=== PATIENT | male | born 1950 | race Caucasian/White ===

== ENCOUNTER 2017-03-19 11:00 | Emergency (ER) | payer MEDICARE, OTHER ==
[~2017-03-19] VITALS: Ht 182.9 cm; Wt 77.0 kg
[2017-03-19 11:16] VITALS: Ht 182.9 cm; Wt 77.0 kg
--- NOTE | 2017-03-19 11:51 | RADRPT ---
PROCEDURE: XR Chest. CLINICAL INDICATION: chest pain TECHNIQUE: Single frontal view of the chest was obtained COMPARISON: None FINDINGS: The heart and mediastinum are within normal limits. There is a tracheostomy tube in place. There is right lower lobe scarring and pleural thickening and possible right pleural effusion. The lungs are hyperinflated. There is no pneumothorax. RPTAT: AA IMPRESSION: Right lower lobe scarring and pleural thickening and possible moderate right pleural effusion. Hyperinflated lungs. .Henri Arriaza MD, Date Time Electronically viewed and signed by .Henri Arriaza MD, on 03/19/2017 11:51 .S/
[2017-03-19] MEDS ORDERED: ACET-141 GTB (12:09)
[2017-03-19] MEDS ORDERED: ATOR40TA68 GTB (12:10)
[2017-03-19] MEDS ORDERED: ASPI81TA3 PO (12:10)
[2017-03-19] MEDS ORDERED: ASCO500C7 GTB (12:10)
[2017-03-19] MEDS ORDERED: CARV12.598 PO (12:11)
[2017-03-19] MEDS ORDERED: HYDR2TAB36 GTB (12:11)
[2017-03-19] MEDS ORDERED: BUPR100T14 GTB (12:11)
[2017-03-19] MEDS ORDERED: IPRA3AMP INHALATION (12:12)
[2017-03-19] MEDS ORDERED: DOCU-159 GTB (12:12)
[2017-03-19] MEDS ORDERED: FAMO20TA18 GTB (12:12)
[2017-03-19] MEDS ORDERED: FERR220S13 GTB (12:13)
[2017-03-19] MEDS ORDERED: LORA1TAB GTB (12:13)
[2017-03-19] MEDS ORDERED: FURO20TA3 GTB (12:13)
[2017-03-19] MEDS ORDERED: MAGN400O4 GTB (12:14)
[2017-03-19] MEDS ORDERED: ONDA4TAB95 GTB (12:15)
[2017-03-19] MEDS ORDERED: MULT9LIQ4 GTB (12:15)
[2017-03-19] MEDS ORDERED: QUET50TA22 GTB (12:16)
[2017-03-19] MEDS ORDERED: ROFL500T6 GTB (12:17)
[2017-03-19] MEDS ORDERED: SERT-165 GTB (12:23)
[2017-03-19] MEDS ORDERED: MYL80 GTB (12:26)
[2017-03-19] MEDS ORDERED: CHOL400T10 GTB (12:27)
--- NOTE | 2017-03-19 12:53 | ERD ---
ER Documentation Chief Complaint Chief Complaint sob and anxiety today, sent from [facility], no sob noted. HPI This is a 66-year-old male with a past medical history of lung cancer status post resection, chronic hypoxic respiratory failure status post prolonged intubation course ultimately requiring tracheostomy, dysphagia status post PEG tube placement, long-standing anxiety who is presenting with symptoms that he reports are consistent with an anxiety attack. The patient was isolated in her room at his rehab facility and started to feel very anxious because he was all alone. He started to feel palpitations and significant distress. He denies ever having any chest pain or diaphoresis or lightheadedness or nausea or vomiting or shortness of breath. The facility called the ambulance. However, prior to ambulance arrival, the patient states that his symptoms resolved. He was just feeling very anxious about being all alone. The patient currently does not endorse any symptoms. He just wants to go back to the facility. ROS All systems reviewed and are negative except as per history of present illness. Medications Home Meds Reported Medications Cholecalciferol* (Vitamin D*) 400 Unit Tablet, 400 UNIT GTB DAILY, TAB 03/19/17 Simethicone* (Mylicon*) 80 Mg Tab, 80 MG GTB TID, TAB 03/19/17 Sertraline Hcl* (Sertraline Hcl*) 100 Mg Tablet, 100 MG GTB QHS, #30 TAB 03/19/17 Roflumilast (Daliresp) 500 Mcg Tablet, 500 MCG GTB DAILY, TAB 03/19/17 Quetiapine Fumarate* (Quetiapine Fumarate*) 50 Mg Tablet, 50 MG GTB BID, TAB 03/19/17 Ondansetron Hcl* (Ondansetron Hcl*) 4 Mg Tablet, 4 MG GTB Q4H Y for NAUSEA AND OR VOMITING, TAB 03/19/17 Multivit &Minerals/Ferrous Fum (MULTIVITAMIN LIQUID) 9 Mg/15 Ml Liquid, 18 MG GTB DAILY 03/19/17 Magnesium Hydroxide* (Milk Of Magnesia*) 400 Mg/5 Ml Oral.susp, 30 ML GTB QHS Y for CONSTIPATION, ML 03/19/17 Lorazepam* (Lorazepam*) 1 Mg Tablet, 1 MG GTB Q4 Y for ANXIETY, #30 TAB 03/19/17 Furosemide* (Furosemide*) 20 Mg Tablet, 20 MG GTB DAILY, #60 TAB 12/6/17 Ferrous Sulfate* (Ferrous Sulfate*) 220 Mg/5 Ml Solution, 300 MG GTB TID, ML 03/19/17 Famotidine* (Famotidine*) 20 Mg Tablet, 20 MG GTB BID, #60 TAB 03/19/17 Ipratropium-Albuterol (Ipratropium-Albuterol) 0.5-3 Mg/3 Ml Ampul.neb, 3 ML INHALATION Q6 Y for WHEEZING AND SOB, #30 VIAL 03/19/17 Docusate Sodium* (Docusate Sodium*) 100 Mg Capsule, 100 MG GTB BID, #60 CAP 03/19/17 Hydromorphone Hcl* (Dilaudid*) 2 Mg Tablet, 2 MG GTB Q4 Y for PAIN, TAB 03/19/17 Carvedilol* (Coreg*) 12.5 Mg Tablet, 12.5 MG PO BID, #60 TAB 03/19/17 Bupropion Hcl* (Bupropion Hcl*) 100 Mg Tablet, 100 MG GTB BID, TAB 03/19/17 Atorvastatin* (Atorvastatin*) 40 Mg Tablet, 40 MG GTB QHS, #30 TAB 03/19/17 Aspirin* (Aspirin* Chew) 81 Mg Tab.chew, 81 MG PO DAILY, TAB.CHEW 03/19/17 Ascorbic Acid* (Vitamin C*) 500 Mg Capsule.sa, 500 MG GTB BID, CAP 03/19/17 Acetaminophen* (Acetaminophen*) 500 MG Extra Strength Tablet, 500 MG GTB Q6 Y for PAIN AND OR ELEVATED TEMP, TAB 03/19/17 Allergies Allergies: Coded Allergies: tetracycline (Verified Allergy, Severe, 03/19/17) PMhx/Soc History of Surgery: Yes (right lung ca 12/29, ) Anesthesia Reaction: No Hx Respiratory Disorders: Yes (trach to vent, dysphagia, resp failure, ) Hx Cardiac Disorders: Yes (htn, ) Hx Psychiatric Problems: Yes (bipolar, ) Hx Miscellaneous Medical Probl: Yes (dm, lung ca, g-tube) Hx Alcohol Use: Yes Hx Substance Use: No Hx Tobacco Use: Yes Smoking Status: Former smoker FmHx Family History: No coronary disease, No diabetes Physical Exam Vitals Vital Signs Date Time Temp Pulse Resp B/P Pulse Ox O2 Delivery O2 Flow Rate FiO2 03/19/17 11:16 98.0 70 97/61 98 03/19/17 11:15 68 17 98 30 Physical Exam Const: No apparent distress, well-developed, well-nourished Head: Normocephalic, Atraumatic Eyes: Normal Conjunctiva. Extraocular movements intact. Pupils equal, round and reactive to light ENT: Normal External Ears, Nose and Mouth. Neck: Full range of motion. No meningismus. Tracheostomy in place without erythema or induration or purulence or fluctuance or bleeding Resp: Clear to auscultation bilaterally, No wheezes, rales or rhonchi Cardio: Regular rate and rhythm. No murmurs, rubs or gallops Abd: Soft, non tender, non distended. Normal bowel sounds. PEG tube in place without erythema or induration or purulence or fluctuance or bleeding Skin: No petechiae or rashes Back: No midline tenderness. No CVA tenderness Ext: No cyanosis, or edema Neur: Awake and alert, oriented 4. Cranial nerves intact. No facial droop. Normal strength, sensation and coordination. Psych: Normal Mood and Affect, not anxious presently Procedures/MDM MDM The patient's presentation warrants further investigation. The patient's symptoms are consistent with an anxiety attack. I will obtain a chest x-ray and a an EKG to evaluate for any evidence of a cardiac etiology of his symptoms , my suspicion is low given his overall presentation. EKG EKG read by me: Rate/Rhythm: Regular rate and rhythm at a rate of 77 bpm Intervals: Normal [place]: Normal Impression: No evidence of ischemia or arrhythmia IMAGING CXR FINDINGS: The heart and mediastinum are within normal limits. There is a tracheostomy tube in place. There is right lower lobe scarring and pleural thickening and possible right pleural effusion. The lungs are hyperinflated. There is no pneumothorax. IMPRESSION: Right lower lobe scarring and pleural thickening and possible moderate right pleural effusion. Hyperinflated lungs. Electronically viewed and signed by .Henri Arriaza MD, on 03/19/2017 11: 51 TREATMENT/DISPOSITION The patient has lung changes that are likely chronic in nature. The patient's EKG is reassuring. The patient has no complaints and feels very strongly that this was simply an anxiety attack. Given the unremarkable EKG, I have low suspicion for a cardiac etiology. At this time, I feel that the patient may return to his rehab facility. I feel that the patient stable for discharge. The patient will need follow-up with his primary care physician in 2-3 days. The patient will be given strict precautions with which to return to the emergency department. Disclaimer: Inadvertent spelling and grammatical errors are likely due to EHR/ dictation software use and do not reflect on the overall quality of patient care. Note that the electronic time recorded on this note does not necessarily reflect the actual time of the patient encounter. Departure Diagnosis: Primary Impression: Shortness of breath Additional Impression: Anxiety Condition: Stable SAMREEN HATCH MD Mar 19, 2017 12:53
[2017-03-19 15:05] VITALS: BP 111/80; PULSE 98; RESP 16; TEMP 97.8
== END 2017-03-19 15:10 | disposition home or self-care (01) ==
LOC: E/R 11:00
DX: R06.02 Shortness of breath (principal); F41.9 Anxiety disorder, unspecified; I10 Essential (primary) hypertension; E11.9 Type 2 diabetes mellitus without complications; Z85.118 Personal history of other malignant neoplasm of bronchus and lung; Z79.82 Long term (current) use of aspirin; Z87.891 Personal history of nicotine dependence
CPT/HCPCS: 71010; 93005; 94002